=== PATIENT | male | born 1950 | race Caucasian/White ===

== ENCOUNTER 2019-05-29 12:41 | Emergency (ER) | payer MEDICARE, SELFPAY ==
[2019-05-29 12:44] VITALS: BP 135/78; PULSE 61; RESP 20; TEMP 35.7; O2SAT 100
--- NOTE | 2019-05-29 13:00 | ED.WEAKNESS ---
HPI - Weakness General Chief complaint: Weakness Stated complaint: DIZZY/WEAKNESS/NAUSEA Time Seen by Provider: 05/29/19 13:00 Source: patient Mode of arrival: ambulatory Limitations: no limitations History of Present Illness HPI Narrative: A 68 y/o male, who is a former smoker/nondrinker, presents to with c/o dizziness. Pt states he was watching a movie about 1 hour ago when he got up to use the bathroom. Pt began to feel dizzy while he was urinating and the room was spinning. Pt's was not home at the time so he called his son. Pt also c/o a CASTILLO for the past couple days which is not normal for him. Pt notes that he has been taking 2 ASA 325 mg for the past 3-4 days which he usually does not take. Pt reports generalized weakness which He reports nausea, dry heaving, an intermittent low grade fever, but denies vomiting, CP, ABD pain, and numbness. never had before pmhx sinus allergies gen weak days, works a lot will work until he falls over just got off abx sinus onf ampicilledda and sanjuanita, felt better after, finished friday congestion is better now sinus surgery x3 no earkness in arm or leg, no speech diff laid on floor after let son in feels better now no palp no recent injury btter laying down asthma med no hearing changes, no tinnitus worse blood test 6 months ago only takes brio and flanase carbon monoxide detector stopped working, has ventless fireplace recommnded blood test and CT scan no ct scan before left atrial enlargement Related Data Home Medications Medication Instructions Recorded Confirmed fluticasone furoate-vilanterol 1 inh INHALATION DAILY 05/29/19 05/29/19 [Breo Ellipta] fluticasone propionate [Flonase 1 spray INTRANASAL BID 05/29/19 05/29/19 Allergy Relief] Allergies Allergy/AdvReac Type Severity Reaction Status Date / Time No Known Allergies Allergy Verified 05/29/19 12:49 REPLACED BY [facility] Past Medical History Medical History (Updated 05/29/19 @ 13:20 by Lottie Cottrell) HLD (hyperlipidemia) Sinus problem Surgical History Surgical History (Updated 05/29/19 @ 13:19 by Lottie Cottrell) History of nasal surgery Social History Social History (Reviewed 05/29/19 @ 13:19 by Lottie Valdes Smoking status: Former smoker Second hand tobacco smoke exposure: No Alcohol intake: current Course Vital Signs Vital signs: Vital Signs Temperature 35.7 C L 05/29/19 12:44 Pulse Rate 61 05/29/19 12:44 Respiratory Rate 05/29/19 12:44 Blood Pressure 135/78 05/29/19 12:44 Pulse Oximetry 100 05/29/19 12:44 Temperature 35.7 C L 05/29/19 12:44 Pulse Rate 61 05/29/19 12:44 Respiratory Rate 05/29/19 12:44 Blood Pressure 135/78 05/29/19 12:44 Pulse Oximetry 100 05/29/19 12:44 Discharge Plan Discharge Prescriptions: No Action fluticasone propionate [Flonase Allergy Relief] 50 mcg/actuation [place],Suspension 1 spray INTRANASAL BID RF: 0 Breo Ellipta 100-25 mcg/dose Blister With Device 1 inh INHALATION DAILY RF: 0
--- NOTE | 2019-05-29 13:04 | ECG_ITS ---
Measurements Intervals [place] Rate: 55 P: 63 RI: 156 QRS: 27 QRSD: 101 T: 47 QT: 442 QTc: 425 Interpretive Statements SINUS BRADYCARDIA POSSIBLE LEFT ATRIAL ENLARGEMENT BORDERLINE ECG Electronically Signed On 05-29-2019 18:45:09 FIELD SALES REPRESENTATIVE by Juan Jose Dodson D.O.
--- NOTE | 2019-05-29 13:35 | ED.DIZZY ---
HPI - Dizziness General Chief Complaint: Weakness Stated Complaint: DIZZY/WEAKNESS/NAUSEA Time Seen by Provider: 05/29/19 13:00 Source: patient and family (son) Mode of arrival: wheelchair Limitations: no limitations History of Present Illness HPI Narrative: A 68 y/o male, who is a former smoker/nondrinker, presents to with c/o 'dizziness', true vertigo. Pt states he was watching a movie about 1 hour ago when he got up to use the bathroom. Pt began to feel dizzy while he was urinating and the room was spinning. Pt's was not home at the time so he called his son. When pt's son arrived, the pt was sitting in his chair but then proceeded to lay down on the floor. The dizziness is worse with movement and alleviated when sitting still. He reports nausea, dry heaving, an possible low fever, but denies vomiting, CP, ABD pain, numbness, palpitations, a recent injury, weakness in an arm or leg, speech difficulty, tinnitus nor hearing changes. Pt also c/o a CASTILLO for the past couple days which is like prior CASTILLO --yet not normally this persistant for him. Pt notes that he has been taking 2 ASA 325 mg for the past 3-4 days which he usually does not take. Pt reports generalized weakness stating that he has been more fatigued over the past few days. Pt has a PMHx of sinus problems but has not experienced dizziness like this before in the past. Pt just finished a course of Ampicillan AND a Z-pack on Friday for a sinus infection-with definite and strong improvement of congestion. Pt mentions that he has a ventless fireplace at home and his carbon monoxide detector is currently broken. His last blood test was done 6 months ago, it is recommended to the pt to present to the ED for a blood test and imaging. Onset (ago): hour(s) (1) Timing: sudden onset Description: room spinning Related Data Home Medications Medication Instructions Recorded Confirmed fluticasone furoate-vilanterol 1 inh INHALATION DAILY 05/29/19 05/29/19 [Breo Ellipta] fluticasone propionate [Flonase 1 spray INTRANASAL BID 05/29/19 05/29/19 Allergy Relief] Allergies Allergy/AdvReac Type Severity Reaction Status Date / Time No Known Allergies Allergy Verified 05/29/19 12:49 Review of Systems Review of Systems: Narrative: General/Constitutional: Reports: generalized weakness, fatigue, intermittent low grade fever; Denies: weight loss, a recent injury Eyes: Denies: Redness,discharge Ears/Nose/Throat: Denies: Epistaxis,ear discharge, hearing changes Respiratory: Denies: Hemoptysis Cardiovascular: Denies: CP, palpitations Gastrointestinal: Reports: nausea, dry heaving; Denies: Vomiting, Bleeding-rectal, ABD pain Skin: Denies: Lumps, eruption Neurologic: Reports: dizziness, CASTILLO; Denies: Focal Weakness,Sz, numbness, speech difficulty Hematologic: Denies: Petechiae/Purpura Psychiatric: Denies: Suicidal ideation All systems reviewed & are unremarkable except as noted in HPI and below PMFSH Past Medical History Medical History Arthritis Asthma Hemorrhoids Herniated disc HLD (hyperlipidemia) Renal disease Sinus problem Surgical History Surgical History H/O hernia repair History of nasal surgery Social History Social History Smoking status: Former smoker Second hand tobacco smoke exposure: No Alcohol intake: never Gender identity (if verbalized by the patient): Male Comments PCP: Dr. Galaviz At time of signature, agree with nursing past medical, surgical, social and family history. There is no relevant family history pertinent to the presenting complaint Exam Narrative: Exam Narrative: General Appearance: Well appearing, No distress EYE: PERRLA, Conjunctiva clear, EOMI, no nystagnus seen Neurological: A&O x3, CN II-X intact, normal [id number]-[id number] Ears: External ear normal, TM Nose:
[2019-05-29] MEDS: ONDANSETRON HCL ODT 4 MG TABLET PO (13:36)
--- NOTE | 2019-05-29 13:52 | PC.NURSE ---
Unable to give antivert to patient. None available in Bin.
== END 2019-05-29 13:55 | disposition short-term general hospital (02) ==
PROVIDERS: Emergency Provider Emergency Medicine; PCP Family Medicine
DX: R42 Dizziness and giddiness (principal); R11.2 Nausea with vomiting, unspecified; M19.90 Unspecified osteoarthritis, unspecified site; J45.909 Unspecified asthma, uncomplicated; E78.5 Hyperlipidemia, unspecified
CPT/HCPCS: 87804; 93005; 99213; A9270; G0463

== ENCOUNTER 2019-05-29 13:54 | Emergency (ER) | payer MEDICARE, SELFPAY ==
--- NOTE | ~2019-05-29 | CT_ITS ---
EXAMINATION: CTA brain carotid DATE: 05/29/2019 15:22 INDICATION: Dizziness TECHNIQUE: Computed tomographic angiography (CTA) of the head was performed without and with 100 mL O mnipaque-350 intravenous contrast. CTA of the neck was performed with intravenous contrast. The dose- length product was 1756.57 mGy-cm. Maximum intensity projection and volume rendered 3D-reconstruction s were created by the technologist on a separate workstation. Automated exposure control and iterativ e reconstruction technique were employed. COMPARISON: None. FINDINGS: HEAD CTA: There is no intracranial hemorrhage, acute infarction, or abnormal mass lesion. The ventri cles are normal. There is no abnormal mass effect or midline shift. The soto-white matter differentia tion is normal. The basal cisterns are patent. The orbits are normal. There is moderate opacification of the maxillary, sphenoid, and frontal sinuses as well as the ethmoidal air cells. There is no significant stenosis of the basilar artery or posterior cerebral arteries. The left verte bral artery is dominant. There is no significant stenosis of the intracranial internal carotid arteri es or the anterior or middle cerebral arteries. The anterior communicating artery and posterior commu nicating arteries are normal. There is no aneurysm. NECK CTA: There are no pathologically enlarged lymph nodes. There is severe mid cervical spondylosis. There is 0% stenosis of the proximal right internal carotid artery relative to normal distal artery l umen diameter (NASCET criteria). There is 0% stenosis of the proximal left internal carotid artery re lative to normal distal artery lumen diameter. IMPRESSION: 1. No acute intracranial process. Unremarkable head CTA. 2. 0% stenosis of the proximal right internal carotid artery relative to normal distal artery lumen d iameter (NASCET criteria). 3. 0% stenosis of the proximal left internal carotid artery relative to normal distal artery lumen di ameter. 4. Sinus disease. Reviewed, dictated and finalized at location A. ORICAL GUIDE IMPRESSION: 1. No acute intracranial process. Unremarkable head CTA. 2. 0% stenosis of the proximal right internal carotid artery relative to normal distal artery lumen diameter (NASCET criteria). 3. 0% stenosis of the proximal left internal carotid artery relative to normal distal artery lumen diameter. 4. Sinus disease.
[2019-05-29 13:58] VITALS: BP 146/78; PULSE 62; RESP 20; TEMP 36.4; O2SAT 100
[2019-05-29] MEDS: METOCLOPRAMIDE HCL INJ 10 MG/2 ML VIAL IV PUSH (14:40)
[2019-05-29] MEDS: LACTATED RINGERS 1,000 ML 999 ML IV CONT ×2 (14:40→15:22)
[2019-05-29 14:41] LABS: Basophils Absolute Auto 0.1 K/mm3 (0.0-0.1); Basophils Percent Auto 0.4 % (0.2-1.2); Eosinophils Absolute Auto 0.3 K/mm3 (0-0.3); Eosinophils Percent Auto 2.1 % (0-4.4); Hemoglobin 12.9 g/dL (14.0-18.0); Immature Granulocyte Absolute 0.06 K/mm3 (0.00-0.031); Immature Granulocyte Percent A 0.4 % (0-0.5); Lymphocytes Absolute Auto 0.92 K/mm3 (0.9-3.2); Lymphocytes Percent Auto 6.2 % (18.3-44.2); Mean Corpuscular HGB Conc 32.3 g/dl (32-36); Mean Corpuscular Hemoglobin 27.7 pg (26-34); Mean Platelet Volume 9.2 fl (7.4-10.4); Monocytes Percent Auto 6.5 % (2.6-8.5); Neutrophils Absolute Auto 12.5 K/mm3 (1.3-6.7); Neutrophils Percent Auto 84.4 % (45.5-73.1); Platelet Count Result 403 k/mm3 (150-375); Red Blood Count 4.65 M/mm3 (4.6-6.20); Red Cell Distribution Width 14.2 % (11.5-14.5); White Blood Count 14.8 K/mm3 (4.5-10.0)
[2019-05-29] MEDS: MECLIZINE HCL 25 MG TABLET PO (14:41)
--- NOTE | 2019-05-29 14:45 | ED.DIZZY ---
HPI - Dizziness General Chief Complaint: Dizziness <OSMANY Kelsey Last Filed: 05/29/19 16:57> Stated Complaint: dizziness/sent from urgent care <OSMANY Kelsey Last Filed: 05/29/19 16:57> Time Seen by Provider: 05/29/19 14:05 <OSMANY Kelsey Last Filed: 05/29/19 16:57> Source: patient and family <OSMANY Kelsey Last Filed: 05/29/19 16:57> Mode of arrival: ambulatory <OSMANY Kelsey Last Filed: 05/29/19 16:57> Limitations: no limitations <OSMANY Kelsey Last Filed: 05/29/19 16:57> History of Present Illness HPI Narrative: Patient is a 68-year-old male who presents to emergency department for evaluation of dizziness that began today patient notes that during the day he developed a sensation of the room spinning about him with position change with associated nausea and weakness. Patient denies similar occurrence in the past notes that he has had right temporal headache for the last 3 days that he has been taking aspirin for with improvement patient denies any fever chills vomiting diarrhea paresthesias or any other complaints and presents from urgent care in no distress denies injury or trauma notes that he did have a recent sinus infection that he is getting over. <OSMANY Kelsey Last Filed: 05/29/19 16:57> Related Data Home Medications: Home Medications Medication Instructions Recorded Confirmed fluticasone furoate-vilanterol 1 inh INHALATION DAILY 05/29/19 05/29/19 [Breo Ellipta] fluticasone propionate [Flonase 1 spray INTRANASAL BID 05/29/19 05/29/19 Allergy Relief] <OSMANY Kelsey Last Filed: 05/29/19 16:57> Allergies/Adverse Reactions: Allergies Allergy/AdvReac Type Severity Reaction Status Date / Time No Known Allergies Allergy Verified 05/29/19 12:49 <OSMANY Kelsey Last Filed: 05/29/19 16:57> Review of Systems Review of Systems: All systems reviewed & are unremarkable except as noted in HPI and below <OSMANY Kelsey Last Filed: 05/29/19 16:57> [facility] Past Medical History Medical History: Medical History Arthritis Asthma Hemorrhoids Herniated disc HLD (hyperlipidemia) Renal disease Sinus problem <Omar Sprague PA-C - Last Filed: 05/29/19 16:57> Surgical History Surgical History: Surgical History H/O hernia repair History of nasal surgery <Omar Sprague PA-C - Last Filed: 05/29/19 16:57> Social History Social History: Social History Smoking status: Former smoker Second hand tobacco smoke exposure: No Alcohol intake: never Gender identity (if verbalized by the patient): Male <Omar Sprague PA-C - Last Filed: 05/29/19 16:57> Exam Narrative: Exam Narrative: GENERAL: Well-appearing, well-nourished, and in no acute distress. HEAD: Normocephalic, atraumatic. EYES: PERRLA and EOMI. ENT: Nares clear, no rhinorrhea or epistaxis. Mucous membranes moist. Oropharynx without tonsillar hypertrophy exudate or other lesions. Bilateral TMs pearly soto nonbulging NECK: Supple. No adenopathy or masses. CHEST: Clear to auscultation. No respiratory distress. No wheezes rales or rhonchi HEART: Regular rate and rhythm. No murmur heard. EXTREMITIES: Normal range of motion. No edema. SKIN: Warm, dry, no rash. NEURO: No focal deficits. Alert and oriented x3. Cranial nerves II through XII grossly intact. Normal speech. Cerebellar intact. No pronator drift. Normal cqxori-uq-necx and gevb-is-nlhv PSYCH: Normal mood and affect. <Omar Sprague PA-C - Last Filed: 05/29/19 16:57> Course Course Emergency Course: Patient in the room in no distress noting resolution of symptoms with medications aware of case findings treatment plan and [place]
[2019-05-29 14:54] LABS: Alanine Aminotransferase 34 U/L (4-50); Albumin Level 4.1 g/dL (3.5-5.1); Alkaline Phosphatase 59 U/L (38-126); Aspartate Amino Transferase 38 U/L (17-59); Bilirubin,Total 0.5 mg/dL (0.2-1.3); Blood Urea Nitrogen 28 mg/dL (9-20); Calcium 9.5 mg/dL (8.4-10.2); Carbon Dioxide 25 mmol/L (22-30); Chloride 101 mmol/L (98-107); Estimated CRCL calculation 78 ml/min; Estimated Glomerular Filt Rate > 60; Glucose 98 mg/dL (75-110); Potassium 3.9 mmol/L (3.4-5.0); Sodium 135 mmol/L (137-145)
[2019-05-29 15:00] LABS: Blood Urea Nitrogen 31 mg/dL (8-26); Estimated CRCL calculation 78 ml/min; Estimated Glomerular Filt Rate > 60
[2019-05-29 15:03] LABS: Troponin I < 0.012 ng/mL (0.000-0.034)
[2019-05-29 15:23] VITALS: BP 135/73; PULSE 67; RESP 17; O2SAT 97
[2019-05-29 16:30] VITALS: BP 132/78; PULSE 76; RESP 17; O2SAT 98
--- NOTE | 2019-05-29 17:22 | ECG_ITS ---
Measurements Intervals [place] Rate: 52 P: 65 [place]: 156 QRS: 43 QRSD: 94 T: 55 QT: 442 QTc: 412 Interpretive Statements SINUS BRADYCARDIA POSSIBLE LEFT ATRIAL ENLARGEMENT BORDERLINE ECG Electronically Signed On 05-30-2019 7:28:39 DIRECTOR OF FINANCE by Juan Jose Dodson D.O.
[2019-05-29 17:27] VITALS: BP 127/59; PULSE 55; RESP 18; O2SAT 98
== END 2019-05-29 17:28 | disposition home or self-care (01) ==
PROVIDERS: Emergency Medicine Emergency Medical Services; Emergency Provider General Practice; PCP Family Medicine
DX: R42 Dizziness and giddiness (principal); R00.1 Bradycardia, unspecified; R94.31 Abnormal electrocardiogram [ECG] [EKG]; J32.9 Chronic sinusitis, unspecified; J45.909 Unspecified asthma, uncomplicated; E78.5 Hyperlipidemia, unspecified; N28.9 Disorder of kidney and ureter, unspecified; Z87.891 Personal history of nicotine dependence
CPT/HCPCS: 36415; 70496; 70498; 80053; 84484; 85025; 87804; 93005; 96361; 96374; 96375; 99284; A9270; J1200; J2765; J3360; J7120; Q9967

== ENCOUNTER 2019-06-08 07:14 | Outpatient (CLI) | payer MEDICARE, SELFPAY ==
--- NOTE | ~2019-06-08 | US_ITS ---
EXAMINATION: US aorta [facility] DATE: 06/08/2019 07:56 INDICATION: Abdominal aortic aneurysm screening. TECHNIQUE: Grayscale, color Doppler, and pulsed Doppler images of the aorta and common iliac arteries were obtained. COMPARISON: None. FINDINGS: The aorta is normal in caliber. The right common iliac artery is normal in caliber. The left common i liac artery is normal in caliber. IMPRESSION: 1. No abdominal aortic aneurysm. Reviewed, dictated and finalized at location A. TENDER
== END 2019-06-08 07:15 | disposition home or self-care (01) ==
LOC: ANHIMG 07:17
PROVIDERS: PCP Family Medicine; Visit Provider Physician Assistant Medical
DX: Z13.6 Encounter for screening for cardiovascular disorders (principal); Z87.891 Personal history of nicotine dependence
CPT/HCPCS: 76706

== ENCOUNTER 2020-08-09 14:21 | Emergency (ER) | payer MEDICARE, SELFPAY ==
--- NOTE | ~2020-08-09 | XR_ITS ---
XR shoulder RT min 2V 08/09/2020 14:36 Indication: Right shoulder pain after fall Procedure: 4 views right shoulder Comparison: No prior studies for comparison. Findings: No fracture, subluxation or dislocation. There is anatomic alignment. No significant soft t issue abnormality. Visualized lung parenchyma is unremarkable. Normal mineralization. Impression: 1: No significant bone or joint abnormality. Reviewed, dictated and finalized at location B. Impression: 1: No significant bone or joint abnormality.
[2020-08-09 14:36] VITALS: BP 158/89; PULSE 68; RESP 12; TEMP 36.5; O2SAT 99
--- NOTE | 2020-08-09 14:49 | ED.UPPEXIN ---
HPI - Extremity Injury (Upper) General Chief Complaint: Extremity Injury, Upper Stated Complaint: R SHOULDER INJURY Source: patient and RN notes reviewed Limitations: no limitations History of Present Illness HPI narrative: The patient, who is a right-handed and still working, presents with right shoulder pain. Patient states he has a prior history of right shoulder arthropathy and left arthritis. He slipped and fell today striking his right shoulder; he complains of mild to moderate pain and disuse. No bleeding, deformity, other injury; symptoms are worse with attempted activity, such that he cannot raise his affected arm much. Related Data Home Medications Medication Instructions Recorded Confirmed cholecalciferol (vitamin D3) 25 25 mcg PO DAILY 02/24/20 07/03/20 mcg (1,000 unit) capsule krill 1 cap PO DAILY 02/24/20 07/03/20 kxb-sa-4-zxi-dxv-pwraoyspagpcm 300 mg-90 mg-24 mg-50 mg capsule xxdnzkzr-cyp-krzqy acid 300 1 tablet PO DAILY 02/24/20 07/03/20 mcg-lycopene 600 mcg-lutein 300 mcg tablet Allergies Allergy/AdvReac Type Severity Reaction Status Date / Time No Known Allergies Allergy Verified 07/03/20 11:39 Review of Systems Review of Systems: Narrative: The patient has been informed that they may have pre-hypertension or Hypertension based on a BP reading in the department. I recommend that the patient call the primary care provider listed on their discharge instructions or a physician of their choice this week to arrange follow up for further evaluation of possible pre-hypertension or Hypertension General/Constitutional: No weight loss,fever Eyes: N0: Redness,discharge Ears/Nose/Throat: No: Epistaxis,ear discharge Respiratory: Denies: Hemoptysis Gastrointestinal: No Vomiting, Bleeding-rectal Skin: No Lumps, eruption Neurologic: No Focal Weakness,Sz Hematologic: Denies: Petechiae/Purpura Psychiatric: No: Suicida ideationl All Other Systems: Reviewed and Negative [facility] Past Medical History Medical History Arthritis Arthritis of finger of both hands Asthma Hemorrhoids Herniated disc HLD (hyperlipidemia) Renal disease Sinus problem Surgical History Surgical History H/O hernia repair History of nasal surgery Social History Social History Second hand tobacco smoke exposure: No Smoking end date: 02/11/85 Alcohol intake: never Substance use: never Gender identity (if verbalized by the patient): Male Comments At time of signature, agree with nursing past medical, surgical, social and family history. There is no relevant family history pertinent to the presenting complaint Exam Narrative: Exam Narrative: General Appearance: Well appearing, Well nourished, No distress EYE: PERRLA, EOMI, Conjunctiva clear Nose: Normal nose, Nares clear Mouth/Throat: Normal appearing, Normal lips, Supple Respiratory: Airway patent, No respiratory distress MS -shoulder: Normal strength (mostly intact, very limited flexion/extension, IR/ER by pain), Tenderness (deltoid laterally, with mod decreased ROM),no swelling , Other positive drop arm, unable to do other provocative tests Skin: Warm, Dry, Normal color Neurological: A&O x3, Speech clear, CN II-XII intact Psychiatric: Normal mood, Normal affect Course Course Emergency Course: Films visualized, interpreted by radiologist, agree, normal see report Vital Signs Vital signs: Vital Signs Temperature 97.7 F 08/09/20 14:36 Pulse Rate 68 08/09/20 14:36 Respiratory Rate 12 08/09/20 14:36 Blood Pressure 158/89 H 08/09/20 14:36 Pulse Oximetry 99 08/09/20 14:36 Temperature 97.7 F 08/09/20 14:36 Pulse Rate 68 08/09/20 14:36 Respiratory Rate 12 08/09/20 14:36 Blood Pressure 158/89 H 08/09/20 14:36 Pulse Oximetry 99 08/09/20 14:36
== END 2020-08-09 15:00 | disposition home or self-care (01) ==
PROVIDERS: Emergency Provider Emergency Medicine; PCP Family Medicine
DX: S46.001A Unspecified injury of muscle(s) and tendon(s) of the rotator cuff of right shoulder, initial encounter (principal); W19.XXXA Unspecified fall, initial encounter; M19.91 Primary osteoarthritis, unspecified site; M19.042 Primary osteoarthritis, left hand; M19.041 Primary osteoarthritis, right hand; J45.909 Unspecified asthma, uncomplicated; E78.5 Hyperlipidemia, unspecified
CPT/HCPCS: 73030; 99213; G0463

== ENCOUNTER 2020-12-11 12:37 | Outpatient (CLI) | payer MEDICARE, SELFPAY | END 2020-12-11 12:38 | disposition home or self-care (01) | LOC: ANHAUDASC 12:39 | PROVIDERS: PCP Family Medicine; Visit Provider Otolaryngology | DX: H90.3 Sensorineural hearing loss, bilateral (principal) | CPT/HCPCS: 92557; 92567 ==

== ENCOUNTER 2021-08-23 00:34 | Day surgery (SDC) | payer MEDICARE, SELFPAY ==
[2021-07-13 12:53] VITALS: BMI 20.8
--- NOTE | 2021-08-06 12:34 | PC.NURSE ---
Reviewed preop history, patient denies any changes to medical history or medications. Reviewed pre op teaching with patient. Patient verbalized understanding.
[2021-08-23 06:57] VITALS: BP 133/78; PULSE 67; RESP 20; TEMP 36.5; O2SAT 100; BMI 19.3
[2021-08-23] MEDS: LACTATED RINGERS 1,000 ML 150 ML IV CONT (07:08)
--- NOTE | 2021-08-23 07:37 | WPDANESEPPF ---
Anes - Initial Pre Proc Eval Procedure: Operation Date: 08/23/21 08:00 Proposed Procedures p Screening Colonoscopy - Alexy Garcia MD Date/Time: 08/23/21 07:37 Surgeon: Alexy Garcai MD Pre Op Diagnosis: neoplasm screening Patient Data Age: 70 Gender: M Height: 1.78 m Weight: 61.3 kg Last Vital Signs Temp 97.7 F 08/23/21 06:57 Pulse 67 08/23/21 06:57 Resp 20 08/23/21 06:57 BP 133/78 08/23/21 06:57 Pulse Ox 100 08/23/21 06:57 Allergies Allergy/AdvReac Type Severity Reaction Status Date / Time No Known Allergies Allergy Verified 08/23/21 06:55 Home Medications Medication Instructions Recorded Confirmed Type cholecalciferol (vitamin D3) 25 25 mcg PO DAILY 02/24/20 07/13/21 History mcg (1,000 unit) capsule krill 1 cap PO DAILY 02/24/20 07/13/21 History sgw-vk-8-gom-rpm-wodkkpkqaudia 300 mg-90 mg-24 mg-50 mg capsule mjlzrjzz-fnw-hfjed acid 300 1 tablet PO DAILY 02/24/20 07/13/21 History mcg-lycopene 600 mcg-lutein 300 mcg tablet fluticasone propionate 50 1 spray INTRANASAL DAILY 08/16/20 07/13/21 History mcg/actuation nasal spray,suspension fluticasone furoate 100 See Rx Instructions .ROUTE 07/09/21 07/13/21 Rx mcg-vilanterol 25 mcg/dose .COMPLEX #180 disk inhalation powder amoxicillin 875 mg-potassium 1 tablet PO Q12H #14 tablet 08/01/21 08/06/21 Rx clavulanate 125 mg tablet prednisone 10 mg tablet See Rx Instructions PO DAILY #42 08/01/21 08/06/21 Rx tablet tamsulosin 0.4 mg capsule See Rx Instructions .ROUTE 08/17/21 Rx .COMPLEX #90 cap Patient hx anesthesia problems: none Family hx anesthesia problems: none Results Review: All pre-operative results and documents have been reviewed as part of the pre-operative evaluation. [facility] Past Medical History Medical History (Reviewed 08/01/21 @ 15:04 by Sera Robles [facility]) Arthritis Arthritis of finger of both hands Asthma Hemorrhoids Herniated disc HLD (hyperlipidemia) Prediabetes Renal disease Rotator cuff disorder Sinus problem Tendinitis of right rotator cuff Urinary hesitancy Wears glasses Surgical History Surgical History H/O hernia repair History of nasal surgery Family History Family History Other Diabetes mellitus Social History Social History Smoking packs per day: 1 Smoking cigarettes per day: 20.0 Years smoked: 13 Smoking pack-years: 13.00 Tobacco type: cigarettes Second hand tobacco smoke exposure: No Smoking end date: 02/11/85 Alcohol intake: never Substance use: never Living arrangements: with family Gender identity (if verbalized by the patient): Male Spiritual care concerns: No Anes - Eval Final PreProcedure Day of Procedure 08/23/21 07:37 Patient weight: normal Heart: regular rate and rhythm Lungs: clear to auscultation Airway: Mallampati scale class II Neurological: alert and oriented Last oral intake: >/= 8 hours ASA classification: II Emergent: no Anesthetic plan: proceed Anesthesia type and monitoring: general GIVS and standard monitoring Results Review: All pre-operative results and documents have been reviewed as part of the pre-operative evaluation. Informed Consent: The patient's anesthetic plan and its attendant risks and benefits were discussed with the patient/family/POA. Questions were solicited and answers provided to the satisfaction of the patient/family/POA.
--- NOTE | 2021-08-23 08:00 | WPDGICN ---
Assessment and Plan Assessment and plan (1) Encounter for screening colonoscopy: Code(s): Z12.11 - Encounter for screening for malignant neoplasm of colon Status: Acute Assessment and Plan: Patient presents for screening colonoscopy. He appears to be at average risk for colon polyps. Further recommendations will be given after endoscopy. GI Consult Note Consult date/time: 08/23/21 08:00 HPI: Minh Major is a 70 year old male Presents for screening colonoscopy. Patient's current weight appetite and bowel movements are normal. Patient denies abdominal pain. He has had no bleeding. Family history is noncontributory. Patient reports prior colonoscopy 10 years ago. He presents today for neoplasia screening. Review of Systems Review of Systems: All systems reviewed & are unremarkable except as noted in HPI and below PMFSH Past Medical History Medical History Arthritis Arthritis of finger of both hands Asthma Hemorrhoids Herniated disc HLD (hyperlipidemia) Prediabetes Renal disease Rotator cuff disorder Sinus problem Tendinitis of right rotator cuff Urinary hesitancy Wears glasses Surgical History Surgical History H/O hernia repair History of nasal surgery Family History Family History Other Diabetes mellitus Social History Social History Smoking packs per day: 1 Smoking cigarettes per day: 20.0 Years smoked: 13 Smoking pack-years: 13.00 Tobacco type: cigarettes Second hand tobacco smoke exposure: No Smoking end date: 02/11/85 Alcohol intake: never Substance use: never Living arrangements: with family Gender identity (if verbalized by the patient): Male Spiritual care concerns: No Meds Home Medications and Allergies Home Medications Medication Instructions Recorded Confirmed Type cholecalciferol (vitamin D3) 25 25 mcg PO DAILY 02/24/20 07/13/21 History mcg (1,000 unit) capsule krill 1 cap PO DAILY 02/24/20 07/13/21 History ozz-yd-6-rke-xsz-ttvptakdhywce 300 mg-90 mg-24 mg-50 mg capsule gmxgmmjs-wwr-carto acid 300 1 tablet PO DAILY 02/24/20 07/13/21 History mcg-lycopene 600 mcg-lutein 300 mcg tablet fluticasone propionate 50 1 spray INTRANASAL DAILY 08/16/20 07/13/21 History mcg/actuation nasal spray,suspension fluticasone furoate 100 See Rx Instructions .ROUTE 07/09/21 07/13/21 Rx mcg-vilanterol 25 mcg/dose .COMPLEX #180 disk inhalation powder amoxicillin 875 mg-potassium 1 tablet PO Q12H #14 tablet 08/01/21 08/06/21 Rx clavulanate 125 mg tablet prednisone 10 mg tablet See Rx Instructions PO DAILY #42 08/01/21 08/06/21 Rx tablet tamsulosin 0.4 mg capsule See Rx Instructions .ROUTE 08/17/21 Rx .COMPLEX #90 cap Allergies Allergy/AdvReac Type Severity Reaction Status Date / Time No Known Allergies Allergy Verified 08/23/21 06:55 Vital Signs Vital Signs - 24 hr 08/23/21 06:57 Temperature 97.7 F Pulse Rate 67 Respiratory Rate 20 Blood Pressure 133/78 Pulse Oximetry 100 Exam Narrative: Physical exam reveals patient to be alert. Vital signs stable. HEENT exam is unremarkable. Patient is anicteric. Lungs are clear to auscultation and percussion. Heart is without murmur or extra sounds. Abdominal exam bowel sounds are present soft nontender with no organomegaly. Digital external rectal exam is normal.
[2021-08-23 08:33] VITALS: BP 125/82; PULSE 82; RESP 19; O2SAT 100
[2021-08-23 08:43] VITALS: BP 115/79; PULSE 73; RESP 18; O2SAT 100
[2021-08-23 08:53] VITALS: BP 141/84; PULSE 67; RESP 19; O2SAT 99
== END 2021-08-23 08:56 | disposition home or self-care (01) ==
PROVIDERS: PCP Family Medicine; Visit Provider Internal Medicine Gastroenterology
PROC: 0DJD8ZZ Inspection of Lower Intestinal Tract, Via Natural or Artificial Opening Endoscopic (ICD-10-PCS; CPT 45378; principal; 2021-08-23 08:00)
DX: Z12.11 Encounter for screening for malignant neoplasm of colon (principal); D12.2 Benign neoplasm of ascending colon; D12.5 Benign neoplasm of sigmoid colon; K57.30 Diverticulosis of large intestine without perforation or abscess without bleeding; E78.5 Hyperlipidemia, unspecified; R39.11 Hesitancy of micturition; J45.909 Unspecified asthma, uncomplicated; Z87.891 Personal history of nicotine dependence
CPT/HCPCS: 45385; 88305; J2001; J2704; J7120

== ENCOUNTER 2021-10-19 08:26 | Emergency (ER) | payer MEDICARE, SELFPAY ==
--- NOTE | 2021-10-19 08:32 | ED.WOUNDLAC ---
HPI - Wound/Laceration General Chief Complaint: Wound/Laceration Stated Complaint: R 5TH FINGER LAC Time Seen by Provider: 10/19/21 08:45 Source: patient, RN notes reviewed and old records reviewed Mode of arrival: ambulatory Limitations: no limitations History of Present Illness HPI narrative: 70-year-old male presents to the [facility] with complaints of dorsal aspect right fifth finger laceration. Bleeding is controlled. Last Tdap was 26 October 2020 Per medical record. Patient states that he was washing dishes when the laceration occurred. States that a dish broke. Happened just prior to arrival approximately 45 minutes. Has full range of motion of the finger. Capillary refill and sensation intact distal to injury Onset (ago): minute(s) (45) Patient tetanus UTD: Yes Treatments prior to arrival: bandage Related Data Home Medications Medication Instructions Recorded Confirmed fluticasone propionate 50 1 spray intranasal DAILY 08/16/20 10/19/21 mcg/actuation nasal spray,suspension (Flonase Allergy Relief) fluticasone furoate 100 1 inh inhalation DAILY 10/19/21 10/19/21 mcg-vilanterol 25 mcg/dose inhalation powder (Breo Ellipta) Allergies Allergy/AdvReac Type Severity Reaction Status Date / Time No Known Allergies Allergy Verified 10/19/21 09:07 Review of Systems Review of Systems: All systems reviewed & are unremarkable except as noted in HPI and below Constitutional: Constitutional: Reports no additional constitutional complaints, Denies chills and Denies fever(s) Eyes: Eyes: Reports no additional eye complaints ENT: Reports system reviewed and no additional complaints, except as documented Cardiovascular: Cardiovascular: Reports no additional cardiovascular complaints Respiratory: Respiratory: Reports no additional respiratory complaints Gastrointestinal: Gastrointestinal: Reports no additional gastrointestinal complaints Musculoskeletal: Musculoskeletal: Reports no additional musculoskeletal complaints Integumentary/Breasts: Skin/Breast: Reports as per HPI (Finger laceration) Comments: 1.5 semicircular flap laceration dorsal PIP right 5th finger. Neurologic: Reports system reviewed and no additional complaints, except as documented Psychiatric: Psychiatric: Reports no additional psychiatric complaints Allergic/Immunologic: Allergic/Immunologic: Reports no additional allergic/immunologic complaints PMFSH Past Medical History Medical History Arthritis Arthritis of finger of both hands Asthma Colon polyp Hemorrhoids Herniated disc HLD (hyperlipidemia) Prediabetes Renal disease Rotator cuff disorder Sinus problem Tendinitis of right rotator cuff Urinary hesitancy Wears glasses Surgical History Surgical History H/O hernia repair History of nasal surgery Family History Family History Other Diabetes mellitus Social History Social History Smoking packs per day: 1 Smoking cigarettes per day: 20.0 Years smoked: 13 Smoking pack-years: 13.00 Tobacco type: cigarettes Second hand tobacco smoke exposure: No Smoking end date: 02/11/85 Alcohol intake: never Substance use: never Gender identity (if verbalized by the patient): Male Spiritual care concerns: No Comments At the time of my signature, I reviewed and agree with the nursing past medical, surgical, social, and family history. There is no relevant family history pertinent to the patient complaint. Exam Const: General: healthy appearing, no acute distress and alert Nutritional Appearance: well nourished Orientation/consciousness: patient oriented x3 Limitations: no limitations HENMT: Head: normal to inspection Ears: external ears normal Eyes: General: appearance normal
[2021-10-19 08:42] VITALS: BP 132/95; PULSE 69; RESP 18; TEMP 36.1; O2SAT 97
[2021-10-19] MEDS: LIDOCAINE HCL 1% LOCAL INJ 20 ML VIAL 5 ML INFILTRATE (15:20)
== END 2021-10-19 09:34 | disposition home or self-care (01) ==
PROVIDERS: Emergency Provider Nurse Practitioner; PCP Family Medicine
DX: S61.216A Laceration without foreign body of right little finger without damage to nail, initial encounter (principal); W45.8XXA Other foreign body or object entering through skin, initial encounter; Y93.G1 Activity, food preparation and clean up; Z87.891 Personal history of nicotine dependence; M19.90 Unspecified osteoarthritis, unspecified site; J45.909 Unspecified asthma, uncomplicated; E78.5 Hyperlipidemia, unspecified; R73.03 Prediabetes
CPT/HCPCS: 12001; 99212; G0463

== ENCOUNTER → 2021-10-23 14:57 | Outpatient (CLI) | payer MEDICARE, SELFPAY ==
--- NOTE | ~2021-10-23 | XR_ITS ---
XR lumbar spine 2-3V 10/23/2021 15:34 Indication: Low back pain Procedure: 3 views lumbar spine Comparison: No prior studies for comparison. Findings: There is dextroscoliosis. There is disc narrowing and endplate hypertrophy at L1-2-L5-S1. P edicles are intact. There are prominent marginal osteophytes. Bowel gas pattern nonobstructive. Impression: 1: Severe lumbar spondylosis with dextroscoliosis. Reviewed, dictated and finalized at location A. Impression: 1: Severe lumbar spondylosis with dextroscoliosis.
== END ==
PROVIDERS: PCP Family Medicine; Visit Provider Physician Assistant
DX: M47.896 Other spondylosis, lumbar region (principal)
CPT/HCPCS: 72100

== ENCOUNTER → 2022-01-01 08:46 | Outpatient (CLI) | payer MEDICARE, SELFPAY ==
--- NOTE | ~2022-01-01 | MR_ITS ---
EXAMINATION: MR lumbar spine wo con DATE: 01/01/2022 09:33 INDICATION: Low back pain. TECHNIQUE: Magnetic resonance imaging (MRI) of the lumbar spine was performed without intravenous con trast. Sequences included sagittal T2-weighted FSE, sagittal T2-weighted FS FSE, sagittal T1-weighted FSE, and axial T2-weighted FSE. COMPARISON: Lumbar spine radiographs 10/23/2021 FINDINGS: There is 22 degrees dextroscoliosis of lumbar spine. There is 5 mm anterolisthesis of L3 on L4. There is mild chronic anterior wedging of T12 and L1 vertebral bodies. There is severely decreas ed disc height from L1-L2 through L5-S1 with endplate remodeling. The distal spinal cord signal inten sity is normal. The conus medullaris is at L1-L2. The following disc levels are specifically discusse d: L1-L2: The disc is bulging and has an annular fissure. There is mild bilateral facet joint osteoarthr itis. There is moderate right and mild left neural foraminal stenosis. There is mild central canal st enosis. L2-L3: The disc is bulging and has an annular fissure. There is mild right and moderate left facet ira int osteoarthritis. There is mild right and moderate left neural foraminal stenosis. There is mild ce ntral canal stenosis. L3-L4: The disc is bulging and has an annular fissure. There is severe bilateral facet joint osteoart hritis. There is moderate bilateral neural foraminal stenosis. There is severe central canal stenosis . L4-L5: The disc is bulging and has an annular fissure. There is severe right and moderate left facet joint osteoarthritis. There is moderate right and mild left neural foraminal stenosis. There is mild central canal stenosis. L5-S1: The disc is bulging and has an annular fissure. There is severe bilateral facet joint osteoart hritis. There is moderate right and mild left neural foraminal stenosis. There is mild central canal stenosis. IMPRESSION: 1. Severe lumbar spondylosis. 2. Lumbar dextroscoliosis. Reviewed, dictated and finalized at location A.
== END ==
PROVIDERS: PCP Family Medicine; Visit Provider Physical Medicine & Rehabilitation
DX: M47.26 Other spondylosis with radiculopathy, lumbar region (principal)
CPT/HCPCS: 72148

== ENCOUNTER 2022-09-16 08:07 | Emergency (ER) | payer MEDICARE, SELFPAY ==
--- NOTE | ~2022-09-16 | XR_ITS ---
AP and oblique views of the left ribs, and PA and lateral chest radiographs Clinical History: Pain Findings: No rib fracture is seen. Osseous alignment is anatomic. Lungs are clear, without focal cons olidation or pleural effusion. Cardiomediastinal contour is within normal limits. Soft tissues are un remarkable. Impression: No rib fracture is seen. Clear lungs. Reviewed, dictated and finalized at location . Impression: No rib fracture is seen. Clear lungs.
[2022-09-16 08:16] VITALS: BP 125/94; PULSE 98; RESP 16; TEMP 36.8; O2SAT 98
--- NOTE | 2022-09-16 08:17 | ED.FALL ---
HPI - Fall General Chief Complaint: Fall Stated Complaint: chest pain, rib injury Time Seen by Provider: 09/16/22 08:17 Source: patient, RN notes reviewed and old records reviewed Mode of arrival: ambulatory Limitations: no limitations History of Present Illness HPI Narrative: 71 [facility] old male [facility] complaints of left anterior lower rib pain after dropping his drill and hitting his left anterior rib area on fence post yesterday around 0800. Patient reports pain along left anterior rib region with increased pain with deep breathing denies any acute shortness of breath does have history of asthma. Patient denies hitting his head when he fell or any LOC, denies feelings of dizziness prior to fall. Patient reports that he has been taking Advil for his discomfort. MD complaint: fall Onset (ago): day(s) (yesterday) Fall from: other (fell into fence post) Place fall occurred: home Loss of consciousness: none Symptoms prior to fall: none Location of injury: chest (left lower anterior rib area) Severity scale (1-10): 6 Related Data Home Medications Medication Instructions Recorded Confirmed fluticasone propionate 50 1 spray intranasal DAILY 08/16/20 09/16/22 mcg/actuation nasal spray,suspension (Flonase Allergy Relief) ferrous sulfate 325 mg (65 mg 325 mg PO BID 12/13/21 09/16/22 iron) tablet pseudoephedrine HCl 30 mg tablet 30 mg PO BID 09/16/22 09/16/22 (Sudafed) Allergies Allergy/AdvReac Type Severity Reaction Status Date / Time No Known Allergies Allergy Verified 09/16/22 08:19 Review of Systems Review of Systems: CONSTITUTIONAL: Denies fever, chills, or sweats. EYES: Denies visual changes, redness, or discharge. ENT: Denies rhinorrhea, congestion, sore throat, or otalgia. CARDIOVASCULAR: Denies chest pain,Reports left anterior lower rib pain from fall into fence post,no palpitations, or edema. RESPIRATORY: Denies acute cough or dyspnea. GASTROINTESTINAL: Denies abdominal pain, nausea, vomiting, or diarrhea. GENITOURINARY: Denies dysuria or hematuria. SKIN: Denies rash or itching. MUSCULOSKELETAL: Denies back pain, joint pain, or myalgia. NEUROLOGIC: Denies headache, numbness, or weakness. PSYCHIATRIC: Denies anxiety or depression. All systems reviewed & are unremarkable except as noted in HPI and below PMFSH Past Medical History Medical History Arthritis Arthritis of finger of both hands Asthma Colon polyp Hemorrhoids Herniated disc HLD (hyperlipidemia) Prediabetes Renal disease Rotator cuff disorder Sinus problem Tendinitis of right rotator cuff Urinary hesitancy Wears glasses Surgical History Surgical History H/O hernia repair History of nasal surgery Family History Family History Other Diabetes mellitus Social History Social History Smoking packs per day: 1 Smoking cigarettes per day: 20.0 Years smoked: 13 Smoking pack-years: 13.00 Smoking status: Former smoker Tobacco type: cigarettes Second hand tobacco smoke exposure: No Smoking end date: 02/11/85 Alcohol intake: never Substance use: never Lack of Transportation: No Lack of Food: Never True Current Housing: I Have Housing Concerned About Future Housing: No Difficulty Paying Gas/Electric Bills: No Difficulty Paying for Meds: No Currently Unemployed: No Education: Associate Degree Difficulty w/ Childcare or Family Care: No Living arrangements: with family Gender identity (if verbalized by the patient): Male Spiritual care concerns: No Comments At time of signature, agree with nursing past medical, surgical, social and family history. There is no relevant family history pertinent to the presenting complaint Exam Narrative: GE
[2022-09-16 08:19] VITALS: BP 125/94; PULSE 98; RESP 16; TEMP 36.8; O2SAT 98
== END 2022-09-16 08:53 | disposition home or self-care (01) ==
PROVIDERS: Emergency Provider Registered Nurse; PCP Family Medicine
DX: S20.212A Contusion of left front wall of thorax, initial encounter (principal); W22.8XXA Striking against or struck by other objects, initial encounter; J45.909 Unspecified asthma, uncomplicated; E78.5 Hyperlipidemia, unspecified; R73.03 Prediabetes; M19.042 Primary osteoarthritis, left hand; M19.041 Primary osteoarthritis, right hand
CPT/HCPCS: 71046; 71100; 99213; G0463

== ENCOUNTER 2022-12-03 10:19 | Emergency (ER) | payer MEDICARE, SELFPAY ==
--- NOTE | 2022-12-03 10:22 | ED.WOUNDLAC ---
HPI - Wound/Laceration General Chief Complaint: Wound/Laceration Stated Complaint: L LOWER LEG LACERATION Source: patient and RN notes reviewed Mode of arrival: ambulatory Limitations: no limitations History of Present Illness HPI narrative: Patient is a 71-year-old male who presents to [facility] with complaints of left lower leg laceration. Patient presents with a 6 cm v-shaped laceration to the left lateral lower leg; bleeding is controlled. Patient states that he was hauling debris and gouged himself with a nail. He is neurovascularly intact distal to the injury. Patient's last tetanus was in 2020. Related Data Home Medications Medication Instructions Recorded Confirmed fluticasone propionate 50 1 spray intranasal DAILY 08/16/20 09/19/22 mcg/actuation nasal spray,suspension (Flonase Allergy Relief) ferrous sulfate 325 mg (65 mg 325 mg PO BID 12/13/21 09/19/22 iron) tablet pseudoephedrine HCl 30 mg tablet 30 mg PO BID 09/16/22 09/19/22 (Sudafed) Allergies Allergy/AdvReac Type Severity Reaction Status Date / Time No Known Allergies Allergy Verified 10/21/22 14:28 Review of Systems Review of Systems: CONSTITUTIONAL: Denies fever, chills, or sweats. EYES: Denies visual changes, redness, or discharge. ENT: Denies otalgia and sore throat CARDIOVASCULAR: Denies chest pain, palpitations, or edema. RESPIRATORY: Denies cough or dyspnea. GASTROINTESTINAL: Denies abdominal pain, nausea, vomiting, or diarrhea. GENITOURINARY: Denies dysuria or hematuria. SKIN: Denies rash or itching. Laceration to the left lower leg. MUSCULOSKELETAL: Denies back pain, joint pain, or myalgia. NEUROLOGIC: Denies headache, numbness, or weakness. Pertinent positives per HPI. [facility] Past Medical History Medical History Arthritis Arthritis of finger of both hands Asthma Colon polyp Hemorrhoids Herniated disc HLD (hyperlipidemia) Prediabetes Renal disease Rotator cuff disorder Sinus problem Tendinitis of right rotator cuff Urinary hesitancy Wears glasses Surgical History Surgical History H/O hernia repair History of nasal surgery Family History Family History Other Diabetes mellitus Social History Social History Smoking packs per day: 1 Smoking cigarettes per day: 20.0 Years smoked: 13 Smoking pack-years: 13.00 Smoking status: Former smoker Tobacco type: cigarettes Second hand tobacco smoke exposure: No Smoking end date: 02/11/85 Alcohol intake: never Substance use: never Lack of Transportation: No Lack of Food: Never True Current Housing: I Have Housing Concerned About Future Housing: No Difficulty Paying Gas/Electric Bills: No Difficulty Paying for Meds: No Currently Unemployed: No Education: Associate Degree Difficulty w/ Childcare or Family Care: No Living arrangements: with family Gender identity (if verbalized by the patient): Male Spiritual care concerns: No Comments At the time of my signature, I reviewed and agree with the nursing past medical, surgical, social, and family history. There is no relevant family history pertinent to the patient complaint. Exam Narrative: GENERAL: This is a well-nourished, well-developed patient, in no apparent distress. HEAD: normocephalic, atraumatic. EYES: PERRL. Sclera clear/white. Vision is grossly intact. EARS: External ears normal, auditory canals clear and without drainage, TMs normal without perforation. Hearing grossly intact. NOSE: External nose normal with no obvious nasal discharge, nares without redness, no rhinorrhea. THROAT: Mucous membranes moist, posterior pharynx clear. NECK: Neck supple, non-tender without lymphadenopathy, masses or thyromegaly. CARDIOVASCULAR: R
[2022-12-03 10:36] VITALS: BP 114/86; PULSE 82; RESP 16; TEMP 36.8; O2SAT 100
== END 2022-12-03 11:02 | disposition home or self-care (01) ==
PROVIDERS: Emergency Provider Nurse Practitioner; PCP Family Medicine
DX: S81.812A Laceration without foreign body, left lower leg, initial encounter (principal); W45.0XXA Nail entering through skin, initial encounter; Z87.891 Personal history of nicotine dependence; M19.042 Primary osteoarthritis, left hand; M19.041 Primary osteoarthritis, right hand; J45.909 Unspecified asthma, uncomplicated; E78.5 Hyperlipidemia, unspecified; R73.03 Prediabetes
CPT/HCPCS: 99212; G0463

== ENCOUNTER 2023-06-16 13:57 | Outpatient (CLI) | payer MEDICARE, SELFPAY ==
--- NOTE | ~2023-06-16 | XR_ITS ---
EXAMINATION: XR chest 2V Exam Date/Time: 06/16/2023 14:00 INSURANCE CLAIMS ADJUSTER HISTORY: J45.30 - Mild persistent asthma, uncomplicated Comparison: None. RESULT: Lines, tubes, and devices: None. Lungs and pleura: Clear. Cardiomediastinal silhouette: Stable. Other: No acute osseous or upper abdominal finding. IMPRESSION: No acute cardiopulmonary process. Reviewed, dictated and finalized at location K. RANCE CLAIMS ADJUSTER
== END 2023-06-16 13:58 ==
PROVIDERS: PCP Family Medicine; Visit Provider Family Medicine
DX: J45.30 Mild persistent asthma, uncomplicated (principal)
CPT/HCPCS: 71046

== ENCOUNTER 2023-07-10 12:55 | Outpatient (CLI) | payer MEDICARE, SELFPAY | END 2023-07-10 12:56 | disposition home or self-care (01) | LOC: ANHAUDASC 12:57 | PROVIDERS: PCP Otolaryngology; Visit Provider Otolaryngology | DX: H66.90 Otitis media, unspecified, unspecified ear (principal); H90.6 Mixed conductive and sensorineural hearing loss, bilateral; H90.3 Sensorineural hearing loss, bilateral | CPT/HCPCS: 92557; 92567 ==

== ENCOUNTER 2023-12-30 15:24 | Emergency (ER) | payer MEDICARE, SELFPAY ==
[2023-12-30 15:44] VITALS: BP 104/68; PULSE 118; RESP 16; TEMP 36.8; O2SAT 98
--- NOTE | 2023-12-30 20:54 | ED.WOUNDLAC ---
HPI - Wound/Laceration General Chief Complaint: Wound/Laceration Stated Complaint: R LOWER LEG LACERATION Time Seen by Provider: 12/30/23 15:51 Source: patient, RN notes reviewed and old records reviewed Mode of arrival: ambulatory Limitations: no limitations History of Present Illness HPI narrative: 73-[facility] to [facility] for complaint of wound to right lower leg. Patent states injury occurred approximately 2 hours prior to arrival. Patient reports that a wooden Pallet fell onto his stevenson, causing injury. Bleeding controlled upon arrival. Patient uncertain of Tdap status. Patient denies Pain, numbness, tingling, weakness, allergies, pertinent medical history. Patient is sitting comfortably in exam room in no acute distress. Respirations even and nonlabored. Related Data Home Medications Medication Instructions Recorded Confirmed ferrous sulfate 325 mg (65 mg 325 mg PO BID 12/13/21 10/23/23 iron) tablet latanoprost 0.005 % eye drops drp EACH EYE 06/16/23 10/23/23 Allergies Allergy/AdvReac Type Severity Reaction Status Date / Time No Known Allergies Allergy Verified 12/30/23 15:50 Review of Systems Review of Systems: All systems reviewed & are unremarkable except as noted in HPI and below Constitutional: Constitutional: Reports no additional constitutional complaints Eyes: Eyes: Reports no additional eye complaints ENT: Reports system reviewed and no additional complaints, except as documented Cardiovascular: Cardiovascular: Reports no additional cardiovascular complaints, Denies chest pain and Denies dyspnea Respiratory: Respiratory: Reports no additional respiratory complaints, Denies cough and Denies dyspnea Musculoskeletal: Musculoskeletal: Reports no additional musculoskeletal complaints Integumentary/Breasts: Skin/Breast: Reports as per HPI and Reports wounds ( right lower leg) Neurologic: Reports system reviewed and no additional complaints, except as documented Psychiatric: Psychiatric: Reports no additional psychiatric complaints [facility] Past Medical History Medical History Arthritis Arthritis of finger of both hands Asthma Colon polyp Hemorrhoids Herniated disc HLD (hyperlipidemia) Prediabetes Renal disease Rotator cuff disorder Sinus problem Tendinitis of right rotator cuff Urinary hesitancy Wears glasses Surgical History Surgical History H/O hernia repair History of nasal surgery Family History Family History Other Diabetes mellitus Social History Social History Social History: Caffeine-coffee Smoking packs per day: 1 Smoking cigarettes per day: 20.0 Years smoked: 13 Smoking pack-years: 13.00 Smoking status: Former smoker Tobacco type: cigarettes Second hand tobacco smoke exposure: No Smoking end date: 02/11/85 Alcohol intake: never Substance use: never Substance use type: does not use Do You Feel Safe in your Home?: Yes Lack of Transportation: No Lack of Food: Never True Current Housing: I Have Housing Concerned About Future Housing: No Difficulty Paying Gas/Electric Bills: No Difficulty Paying for Meds: No Currently Unemployed: No Education: Associate Degree Difficulty w/ Childcare or Family Care: No Living arrangements: with family Gender identity (if verbalized by the patient): Male Spiritual care concerns: No Comments At the time of my signature, I reviewed and agree with the nursing past medical, surgical, social, and family history. There is no relevant family history pertinent to the patient complaint. Exam Const: General: cooperative, healthy appearing, comfortable, no acute distress, alert and well nourished Nutritional Appearance: well nourished Jeferson
== END 2023-12-30 16:03 | disposition home or self-care (01) ==
PROVIDERS: Emergency Provider Nurse Practitioner Family; PCP Family Medicine
DX: S81.811A Laceration without foreign body, right lower leg, initial encounter (principal); W20.8XXA Other cause of strike by thrown, projected or falling object, initial encounter; M19.042 Primary osteoarthritis, left hand; M19.041 Primary osteoarthritis, right hand; E78.5 Hyperlipidemia, unspecified; R73.03 Prediabetes; Z87.891 Personal history of nicotine dependence
CPT/HCPCS: 99213; G0463

== ENCOUNTER 2024-02-10 14:16 | Outpatient (CLI) | payer MEDICARE, SELFPAY ==
--- NOTE | ~2024-02-10 | CT_ITS ---
EXAMINATION: CT sinus wo con DATE: 02/10/2024 14:33 INDICATION: Unspecified nonsuppurative otitis media. TECHNIQUE: Computed tomography (CT) of the paranasal sinuses was performed without intravenous contra st. Iterative reconstruction technique was employed. The dose-length product was 281.60 mGy-cm. COMPARISON: Head CT 05/29/2019 FINDINGS: There is extensive mucosal thickening in the frontal sinuses with erosions of the sinus wal ls. There is extensive mucosal thickening in the ethmoid and sphenoid sinuses with thickening and scl erosis of the sinus escobedo. There is extensive mucosal thickening in right maxillary sinus and moderat e mucosal thickening in left maxillary sinus with thickening and sclerosis of the sinus escobedo. The ma xillary sinuses are small. There is leftward deviation of the nasal septum. There are uncinectomies a nd ethmoidectomies. The ostiomeatal units are patent. IMPRESSION: 1. Chronic sinusitis. 2. Leftward deviation of the nasal septum. Reviewed, dictated and finalized at location B.
== END 2024-02-10 14:17 | disposition home or self-care (01) ==
PROVIDERS: PCP Family Medicine; Visit Provider Otolaryngology
DX: H65.90 Unspecified nonsuppurative otitis media, unspecified ear (principal); J32.0 Chronic maxillary sinusitis; J34.2 Deviated nasal septum
CPT/HCPCS: 70486

== ENCOUNTER 2024-05-25 08:02 | Emergency (ER) | payer MEDICARE, SELFPAY ==
--- NOTE | ~2024-05-25 | XR_ITS ---
EXAMINATION: XR chest 2V DATE: 05/25/2024 08:29 INDICATION: Cough and fever. TECHNIQUE: Frontal and lateral views of the chest were obtained. COMPARISON: Chest 2 views 06/16/2023 FINDINGS: There are mild airspace opacities in right middle lobe. No pleural effusion or pneumothorax . The heart size is normal. IMPRESSION: 1. Mild airspace opacities in right middle lobe, consistent with atelectasis versus pneumonia. Reviewed, dictated and finalized at location A. NESS CONTINUITY DIRECTOR IMPRESSION: 1. Mild airspace opacities in right middle lobe, consistent with atelectasis ve rsus pneumonia.
--- NOTE | 2024-05-25 08:06 | ED_ITS ---
HPI - URI/Sore Throat General Chief Complaint: Upper Respiratory Infection Stated Complaint: Upper Respiratory Symptoms Source: patient and RN notes reviewed Mode of arrival: ambulatory Limitations: no limitations History of Present Illness HPI Narrative: Patient is a 73-year-old male who presents to the [facility] with complaints of cough and congestion for the last 3 days. He endorses a frequent productive co ugh with soto sputum. Denies chest pain. Reports intermittent shortness of breath with the cough. States that his was sick with similar symptoms over the past 10 days. He endorses nasal congestion. Denies known fever. Related Data Home Medications ?Medication ?Instructions ?Recorded ?Confirmed ?Last Taken ?Type ferrous sulfate 325 mg (65 mg 325 mg PO BID 12/13/21 03/16/24 Unknown History iron) tablet latanoprost 0.005 % eye drops drp EACH EYE 06/16/23 03/16/24 Unknown History fluticasone propionate 50 1 spray intranasal DAILY 02/02/24 03/16/24 Unknown History mcg/actuation nasal spray,suspension (Flonase Allergy Relief) Allergies Allergy/AdvReac Type Severity Reaction Status Date / Time No Known Allergies Allergy Verified 05/25/24 08:25 Review of Systems Review of Systems: CONSTITUTIONAL: Denies fever, chills, or sweats. EYES: Denies visual changes, redness, or discharge. ENT: Denies otalgia but reports sore throat. Reports congestion. CARDIOVASCULAR: Denies chest pain, palpitations, or edema. RESPIRATORY: Reports cough and dyspnea. GASTROINTESTINAL: Denies abdominal pain, nausea, vomiting, or diarrhea. GENITOURINARY: Denies dysuria or hematuria. SKIN: Denies rash or itching. MUSCULOSKELETAL: Denies back pain, joint pain, or myalgia. NEUROLOGIC: Denies headache, numbness, or weakness. Pertinent positives per HPI. [facility] Past Medical History Medical History Colon polyp Urinary hesitancy Wears glasses Tendinitis of right rotator cuff Rotator cuff disorder Arthritis of finger of both hands Herniated disc Arthritis Renal disease Hemorrhoids Asthma HLD (hyperlipidemia) Sinus problem Prediabetes Surgical History Surgical History H/O hernia repair History of nasal surgery Family History Family History Other Diabetes mellitus Social History Social History Social History: Caffeine-coffee Smoking packs per day: 1 Smoking cigarettes per day: 20.0 Years smoked: 13 Smoking pack-years: 13.00 Smoking status: Former smoker Tobacco type: cigarettes Second hand tobacco smoke exposure: No Smoking end date: 02/11/85 Alcohol intake: never Substance use: never Substance use type: does not use Do You Feel Safe in your Home?: Yes Lack of Transportation: No Lack of Food: Never True Current Housing: I Have Housing Concerned About Future Housing: No Difficulty Paying Gas/Electric Bills: No Difficulty Paying for Meds: No Currently Unemployed: No Education: Associate Degree Difficulty w/ Childcare or Family Care: No Living arrangements: with family Gender identity (if verbalized by the patient): Male Spiritual care concerns: No Comments At the time of my signature, I reviewed and agree with the nursing past medical, surgical, social, and family history. There is no relevant family history pertinent to the patient complaint. Exam Narrative: GENERAL: This is a well-nourished, well-developed patient, in no apparent distress. HEAD: normocephalic, atraumatic. EYES: Sclera clear/white. Vision is grossly intact. EARS: External ears normal. Hearing grossly intact. NOSE: External nose normal with no obvious nasal discharge, nares without redness, no rhinorrhea. THROAT: Mucous membranes moist, posterior pharynx clear. NECK: Neck supple, non-tender without lymphadenopathy, masses or thyromegaly. CARDIOVASCULAR: Regular rate and rhythm without murmurs, gallops, or rubs. RESPIRATORY: Coarse breath sounds bilaterally. GASTROINTESTINAL: Abdomen soft, non-tender, nondistended. Bowel sounds are active. No hepato-splenomegaly, or palpable masses. No guarding. SKIN: warm, intact with no suspicious lesions or rash, good texture and turgor. NEURO: awake, alert, and oriented to person, place and time. There were no obvious focal neurologic abnormalities. Course Course Level of Care: Express Care Visit Vital Signs Vital signs: Vital Signs Temperature 98.1 F 05/25/24 08:15 Pulse Rate 80 05/25/24 08:15 Respiratory Rate 16 05/25/24 08:15 Blood Pressure 110/71 05/25/24 08:15 Pulse Oximetry 98 05/25/24 08:15 Temperature 98.1 F 05/25/24 08:15 Pulse Rate 80 05/25/24 08:15 Respiratory Rate 16 05/25/24 08:15 Blood Pressure 110/71 05/25/24 08:15 Pulse Oximetry 98 05/25/24 08:15 Reviewed MDM - URI/Sore Throat MDM Narrative Medical decision making narrative: Take antibiotic as prescribed. Recommend antihistamine such as Benadryl at night time and Claritin/Zyrtec/Christina during the day. Increase your Vitamin C intake. Cough syrup may cause drowsiness; avoid driving or take it at night time. Use inhaler as needed for cough, wheezing, shortness of breath or chest tightness. Also, recommend symptomatic treatment includes: rest, fluids, increase humidity of the air at home with a humidifier in the bedroom. Recommend Acetaminophen or nonsteroidal anti-inflammatory agents(NSAIDs) as directed in the bottle to reduce fever and/pain/headache. Avoid smoking/second-hand smoke. Limit visits to areas with large crowds. Frequent hand washing or hand volleyball assistant coach is one of the best ways to prevent spread of infection. Differential Diagnosis Differential diagnosis: Likely upper respiratory infection, viral infection, influenza and other ( pneumonia, COVID) Lab Data Attestation: I reviewed the patient's lab results. Labs: Lab Results 05/25/24 Range/Units 08:30 POC Influenza A Ag Negative (Negative) POC Influenza B Ag Negative (Negative) POC SARS CoV-2 Ag Negative (Negative) Imaging Data Attestation: I personally reviewed and interpreted this imaging study as follows: Radiologist's impression: [facility] [id number] [facility] [address] [facility] [place] [address] XRay Report Signed Patient: Minh Major : 1950 MR#: [id number] Age: 73 Acct:[id number] Loc: [facility] ADM Date: 05/25/24Attending Dr: Ordering Physician: Lara Condon APRN Date of Service: 05/25/24 Procedure(s): XR chest 2V Accession Number(s): [id number] cc: Lara Condon APRN; Danie Galaviz MD~ EXAMINATION: XR chest 2V DATE: 05/25/2024 08:29 INDICATION: Cough and fever. TECHNIQUE: Frontal and lateral views of the chest were obtained. COMPARISON: Chest 2 views 06/16/2023 FINDINGS: There are mild airspace opacities in right middle lobe. No pleural effusion or pneumothorax. The heart size is normal. IMPRESSION: 1. Mild airspace opacities in right middle lobe, consistent with atelectasis versus pneumonia. Reviewed, dictated and finalized at location A. SIVE WHEEL MOLDER Please be advised this is a medical document. It is intended for [id number] communication. It is written in medical language and may contain unfamiliar abbreviations or verbiage. Medical documents are intended to carry relevant information, facts as evident, and the clinical opinion of the practitioner at the time of the encounter. This report may have been done utilizing a voice recognition system. Attempts have been made to correct errors. However, there may be uncorrected grammatical, spelling, and recognition errors present. The file time of this note does not necessarily represent the time of service. Dictated By: Giuseppe Maier MD 05/25/24829 Signed By: <Electronically signed by Giuseppe Maier MD in OV> 05/25/24830 Critical Care Time Critical Care Time Critical Care Time: No Discharge Plan Discharge Clinical Impression: Community acquired pneumonia Qualifiers: Laterality: right Lung location: middle lobe of lung Qualified Code(s): J18.9 - Pneumonia, unspecified organism Patient Disposition: Home, Self-Care Condition: Stable Instructions: Antibiotic Form, Community Acquired Pneumonia (ED) Additional Instructions: Take antibiotic as prescribed. Recommend antihistamine such as Benadryl at night time and Claritin/Zyrtec/Christina during the day. Increase your Vitamin C intake. Cough syrup may cause drowsiness; avoid driving or take it at night time. Use inhaler as needed for cough, wheezing, shortness of breath or chest tightness. Also, recommend symptomatic treatment includes: rest, fluids, increase humidity of the air at home with a humidifier in the bedroom. Recommend Acetaminophen or nonsteroidal anti-inflammatory agents(NSAIDs) as directed in the bottle to reduce fever and/pain/headache. Avoid smoking/second-hand smoke. Limit visits to areas with large crowds. Frequent hand washing or hand volleyball assistant coach is one of the best ways to prevent spread of infection. Patient Language: Finnish Prescriptions: New amoxicillin-pot clavulanate 875-125 mg tablet 1 tablet PO Q12H 7 Days Qty: 14 0RF azithromycin 250 mg tablet See Rx Instructions .ROUTE .COMPLEX Qty: 6 0RF Rx Instructions: For 250 mg dose pack: take 500 mg today (day 1), then 250 mg for 4 days (days 2-5) albuterol sulfate [Ventolin HFA] 90 mcg/actuation HFA aerosol inhaler 2 puff inhalation QID PRN (Reason: shortness of breath or wheezing) Qty: 8.5 0RF No Action latanoprost 0.005 % drops EACH EYE fluticasone propionate [Flonase Allergy Relief] 50 mcg/actuation spray,suspension 2 spray intranasal BID Qty: 48 5RF Rx Instructions: administer into each nostril 1 or 2 sprays b.i.d. fluticasone propionate [Flonase Allergy Relief] 50 mcg/actuation spray,suspension 1 spray intranasal DAILY Rx Instructions: administer into each nostril ferrous sulfate 325 mg (65 mg iron) tablet 325 mg PO BID fluticasone furoate-vilanterol [Breo Ellipta] 100-25 mcg/dose blister with device 1 inh INHALATION DAILY Qty: 180 3RF tamsulosin 0.4 mg capsule See Rx Instructions .ROUTE .COMPLEX Qty: 90 1RF Dose Instruction: TAKE 1 CAPSULE BY MOUTH EVERY DAY Rx Instructions: TAKE 1 CAPSULE BY MOUTH EVERY DAY Follow-up/Referrals: Danie Galaviz MD [Primary Care Provider] - Time of Disposition: 08:39
[2024-05-25 08:15] VITALS: BP 110/71; PULSE 80; RESP 16; TEMP 36.7; O2SAT 98
[2024-05-25 08:32] LABS: EDCOVIDSCREEN Negative (Negative); EDINFLUASCREEN Negative (Negative); EDINFLUBSCREEN Negative (Negative)
== END 2024-05-25 08:44 | disposition home or self-care (01) ==
PROVIDERS: Emergency Provider Nurse Practitioner; PCP Family Medicine
DX: J18.9 Pneumonia, unspecified organism (principal); Z20.822 Contact with and (suspected) exposure to COVID-19; E78.5 Hyperlipidemia, unspecified; J45.909 Unspecified asthma, uncomplicated; R73.03 Prediabetes; M19.042 Primary osteoarthritis, left hand; M19.041 Primary osteoarthritis, right hand; Z87.891 Personal history of nicotine dependence
CPT/HCPCS: 71046; 87426; 87804; 99213; G0463

== ENCOUNTER 2024-05-31 08:02 | Emergency (ER) | payer MEDICARE, SELFPAY ==
--- NOTE | 2024-05-31 08:05 | ED.URI ---
HPI - URI/Sore Throat General Chief Complaint: Upper Respiratory Infection Stated Complaint: Upper Respiratory Symptoms Time Seen by Provider: 05/31/24 08:03 Source: patient Mode of arrival: ambulatory Limitations: no limitations History of Present Illness HPI Narrative: Minh is a 73-year-old male patient presenting to the clinic today with complaints of losing his voice x3 days.. He was seen here on May 25 and was diagnosed with right lower lobe pneumonia. He was prescribed azithromycin, Augmentin, and albuterol inhaler at that time. States his breathing is better but has some congestion and losing his voice. Denies any chest pain or shortness of breath. Oxygen saturations 100% on room air. MD elicited complaint: cough and nasal congestion Related Data Home Medications ?Medication ?Instructions ?Recorded ?Confirmed ?Last Taken ?Type ferrous sulfate 325 mg (65 mg 325 mg PO BID 12/13/21 03/16/24 Unknown History iron) tablet latanoprost 0.005 % eye drops drp EACH EYE 06/16/23 03/16/24 Unknown History fluticasone propionate 50 1 spray intranasal DAILY 02/02/24 03/16/24 Unknown History mcg/actuation nasal spray,suspension (Flonase Allergy Relief) Allergies Allergy/AdvReac Type Severity Reaction Status Date / Time No Known Allergies Allergy Verified 05/31/24 08:19 Review of Systems Review of Systems: Pertinent positives per HPI. Patient denies any fever, chills, rash, headache, visual changes, dizziness, sore throat, shortness of breath, chest pain, palpitations, nausea, vomiting, diarrhea, constipation, abdominal pain, or any urinary issues. [facility] Past Medical History Medical History Colon polyp Urinary hesitancy Wears glasses Tendinitis of right rotator cuff Rotator cuff disorder Arthritis of finger of both hands Herniated disc Arthritis Renal disease Hemorrhoids Asthma HLD (hyperlipidemia) Sinus problem Prediabetes Surgical History Surgical History H/O hernia repair History of nasal surgery Family History Family History Other Diabetes mellitus Social History Social History (Reviewed 05/31/24 @ 08:07 by BERNA Pena Social History: Caffeine-coffee Smoking packs per day: 1 Smoking cigarettes per day: 20.0 Years smoked: 13 Smoking pack-years: 13.00 Smoking status: Former smoker Tobacco type: cigarettes Second hand tobacco smoke exposure: No Smoking end date: 02/11/85 Alcohol intake: never Substance use: never Substance use type: does not use Do You Feel Safe in your Home?: Yes Lack of Transportation: No Lack of Food: Never True Current Housing: I Have Housing Concerned About Future Housing: No Difficulty Paying Gas/Electric Bills: No Difficulty Paying for Meds: No Currently Unemployed: No Education: Associate Degree Difficulty w/ Childcare or Family Care: No Living arrangements: with family Gender identity (if verbalized by the patient): Male Spiritual care concerns: No Comments At the time of my signature, I reviewed and agree with the nursing past medical, surgical, social, and family history. There is no relevant family history pertinent to the patient complaint. Exam Narrative: General: Well-developed, well nourished, in no apparent distress Head: Normocephalic, atraumatic Eyes: Pupils equally round and reactive to light bilaterally, EOM intact, sclera and conjunctive clear, no discharge, lids normal Ears: TMs intact and clear, ear canals clear, no drainage, grossly hearing normal. Nose: Nares patent, clear nasal discharge, no inflammation, no sinus tenderness. Mouth: Oropharynx without lesions or masses, good dentition, MMM. Neck: Supple, trachea midline, no enlargement of anterior or posterior cervical nodes, no thyroid masses or goiter palpable. Cardio: Regular rate and rhythm, s1 and s2 normal, no murmur appreciated. Resp: Clear to auscultation bilaterally anteriorly and posteriorly, no rhonchi, rales, wheezing or rubs Course Course Emergency Course: Portions of this record may have been created with voice recognition software. Level of Care: Express Care Visit Vital Signs Vital signs: Vital signs reviewed MDM - URI/Sore Throat MDM Narrative Medical decision making narrative: At the time of visit patient is resting comfortably on the exam table. Patient appears to be nontoxic. Plan: I suspect patient is recovering from right lower lobe pneumonia, laryngitis, and URI. Prescription for prednisone was sent to the pharmacy. Supportive measures were discussed with the patient and they voiced understanding discharge instructions and agrees to treatment plan. Return precautions reviewed Differential Diagnosis Differential diagnosis: Likely upper respiratory infection, otitis media, sinusitis, viral infection, bronchitis, influenza, pharyngitis and other (COVID) Discharge Plan Discharge Clinical Impression: Laryngitis Pneumonia Qualifiers: Pneumonia type: due to unspecified organism Laterality: right Lung location: lower lobe of lung Qualified Code(s): J18.9 - Pneumonia, unspecified organism URI (upper respiratory infection) Qualifiers: URI type: unspecified viral URI Qualified Code(s): J06.9 - Acute upper respiratory infection, unspecified Patient Disposition: Home, Self-Care Condition: Stable Instructions: Antibiotic Form, Upper Respiratory Infection (ED), Pneumonia (ED) Additional Instructions: Take prescription medications only as prescribed-prednisone Finish taking the Augmentin as prescribed Increase fluids and stay well hydrated Tylenol/motrin for pain/fever Flonase and OTC antihistamines as directed Vicks vapor rub to open sinuses Sinus rinses for congestion Cepacol spray, cough drops, throat lozenges, warm tea with honey/lemon, gargle salt water to soothe throat BRAT diet for diarrhea Clear liquids x 24 hours then advance as tolerated for nausea/vomiting Go to the ED if you develop a worsening in your condition- high fever not controlled by Tylenol or Motrin, dehydration, weakness, lethargy, shortness of breath, or chest pain. Follow up with your PCP in 3-5 days if symptoms persist. Patient Language: Spanish Prescriptions: New prednisone 20 mg tablet 40 mg PO DAILY 5 Days Qty: 10 0RF No Action amoxicillin-pot clavulanate 875-125 mg tablet 1 tablet PO Q12H 7 Days Qty: 14 0RF azithromycin 250 mg tablet See Rx Instructions .ROUTE .COMPLEX Qty: 6 0RF Rx Instructions: For 250 mg dose pack: take 500 mg today (day 1), then 250 mg for 4 days (days 2-5) albuterol sulfate [Ventolin HFA] 90 mcg/actuation HFA aerosol inhaler 2 puff inhalation QID PRN (Reason: shortness of breath or wheezing) Qty: 8.5 0RF latanoprost 0.005 % drops EACH EYE fluticasone propionate [Flonase Allergy Relief] 50 mcg/actuation spray,suspension 2 spray intranasal BID Qty: 48 5RF Rx Instructions: administer into each nostril 1 or 2 sprays b.i.d. fluticasone propionate [Flonase Allergy Relief] 50 mcg/actuation spray,suspension 1 spray intranasal DAILY Rx Instructions: administer into each nostril ferrous sulfate 325 mg (65 mg iron) tablet 325 mg PO BID fluticasone furoate-vilanterol [Breo Ellipta] 100-25 mcg/dose blister with device 1 inh INHALATION DAILY Qty: 180 3RF tamsulosin 0.4 mg capsule See Rx Instructions .ROUTE .COMPLEX Qty: 90 1RF Dose Instruction: TAKE 1 CAPSULE BY MOUTH EVERY DAY Rx Instructions: TAKE 1 CAPSULE BY MOUTH EVERY DAY Follow-up/Referrals: Danie Galaviz MD [Primary Care Provider] - Time of Disposition: 08:18 Quality NIHSS Nursing Documentation ED NIHSS nursing documentation: reviewed/agree
[2024-05-31 08:10] VITALS: BP 111/72; PULSE 77; RESP 18; TEMP 36.6; O2SAT 100
== END 2024-05-31 08:21 | disposition home or self-care (01) ==
PROVIDERS: Emergency Provider Nurse Practitioner Family; PCP Family Medicine
DX: J04.0 Acute laryngitis (principal); J18.9 Pneumonia, unspecified organism; J06.9 Acute upper respiratory infection, unspecified; Z87.891 Personal history of nicotine dependence; M19.90 Unspecified osteoarthritis, unspecified site; E78.5 Hyperlipidemia, unspecified; R73.03 Prediabetes
CPT/HCPCS: 99213; G0463

== ENCOUNTER 2025-01-20 10:52 | Emergency (ER) | payer MEDICARE, SELFPAY ==
[2025-01-20 11:09] VITALS: BP 109/76; PULSE 137; RESP 16; TEMP 36.8; O2SAT 98
--- NOTE | 2025-01-20 11:45 | ED.WOUNDLAC ---
HPI - Wound/Laceration General Chief Complaint: Wound/Laceration Stated Complaint: Laceration to back of head Time Seen by Provider: 01/20/25 11:33 Source: patient and RN notes reviewed Mode of arrival: ambulatory Limitations: no limitations History of Present Illness HPI narrative: 74-year-old male patient presents today complete small laceration to the right posterior scalp. Approximately 1 hour prior to exam patient accidentally struck his head on a backhoe at home. Denies loss of consciousness. Reports minimal pain. He is up-to-date on his tetanus vaccine. Patient takes no anticoagulants or Plavix Related Data Home Medications ?Medication ?Instructions ?Recorded ?Confirmed ?Last Taken ?Type ferrous sulfate 325 mg (65 mg 325 mg PO BID 12/13/21 01/20/25 Unknown History iron) tablet latanoprost 0.005 % eye drops drp EACH EYE 06/16/23 01/19/25 Unknown History ascorbate calcium (vitamin C) 500 500 mg PO BID 01/12/25 01/20/25 Unknown History mg tablet clotrimazole 1 % topical solution 1 applic topical BID 01/12/25 01/19/25 Unknown History fluticasone furoate 100 1 inh inhalation DAILY 01/12/25 01/20/25 Unknown History mcg-vilanterol 25 mcg/dose inhalation powder (Breo Ellipta) ibuprofen 200 mg tablet (Advil) 200 mg PO Q6H PRN 01/12/25 01/19/25 Unknown History buyxjpsr-tl-xznuy 300 mcg-K 60 1 tablet PO DAILY 01/12/25 01/20/25 Unknown History mcg-lycop 600 mcg-lutein 300 mcg tablet (Centrum Silver Men) pseudoephedrine HCl 30 mg tablet 30 mg PO Q4-6H PRN 01/12/25 01/19/25 Unknown History (Sudafed) timolol maleate 0.5 % eye drops drp EACH EYE 01/12/25 01/19/25 Unknown History Allergies Allergy/AdvReac Type Severity Reaction Status Date / Time No Known Allergies Allergy Verified 01/20/25 11:09 [facility] Past Medical History Medical History Colon polyp Urinary hesitancy Wears glasses Tendinitis of right rotator cuff Rotator cuff disorder Arthritis of finger of both hands Herniated disc Arthritis Renal disease Hemorrhoids Asthma HLD (hyperlipidemia) Sinus problem Prediabetes Surgical History Surgical History H/O hernia repair History of nasal surgery Family History Family History Other Diabetes mellitus Social History Social History Social History: Caffeine-coffee Smoking packs per day: 1 Smoking cigarettes per day: 20.0 Years smoked: 13 Smoking pack-years: 13.00 Smoking status: Former smoker Tobacco type: cigarettes Second hand tobacco smoke exposure: No Smoking end date: 02/11/85 Alcohol intake: never Substance use: never Substance use type: does not use Do You Feel Safe in your Home?: Yes Lack of Transportation: No Lack of Food: Never True Current Housing: I Have Housing Concerned About Future Housing: No Difficulty Paying Gas/Electric Bills: No Difficulty Paying for Meds: No Currently Unemployed: No Education: Associate Degree Difficulty w/ Childcare or Family Care: No Living arrangements: with family Gender identity (if verbalized by the patient): Male Spiritual care concerns: No Comments At time of signature, I have reviewed and agree with nursing past medical, surgical, social and family history unless otherwise noted. Please see nursing chart for further information. There is no relevant family history pertinent to the presenting complaint Exam Narrative: GENERAL: Well-appearing, well-nourished, and in no acute distress. HEAD: Normocephalic, atraumatic. EYES: EOMI. No redness or drainage. Conjunctivae normal. ENT: Mucous membranes pink and moist. NECK: Normal AROM. CHEST: No respiratory distress. EXTREMITIES: Normal range of motion. No edema. SKIN: Warm, dry, no rash. Capillary refill normal. Normal skin turgor. 1 cm partial-thickness linear laceration to the right posterior scalp without active bleeding. No surrounding edema, ecchymosis, or crepitus. NEURO: No focal deficits. Alert and oriented x3. Gait steady. PSYCH: Normal affect. No signs of depression or anxiety. Course Course Level of Care: [facility] Care Visit Vital Signs Vital signs: Vital Signs Temperature 98.2 F 01/20/25 11:09 Pulse Rate 137 H 01/20/25 11:09 Respiratory Rate 16 01/20/25 11:09 Blood Pressure 109/76 01/20/25 11:09 Pulse Oximetry 98 01/20/25 11:09 Temperature 98.2 F 01/20/25 11:09 Pulse Rate 137 H 01/20/25 11:09 Respiratory Rate 16 01/20/25 11:09 Blood Pressure 109/76 01/20/25 11:09 Pulse Oximetry 98 01/20/25 11:09 Reviewed. Recheck pulse 84 prior to discharge. MDM - Wound/Laceration MDM Narrative Medical decision making narrative: 74-year-old male patient presents today complete small laceration to the right posterior scalp. Approximately 1 hour prior to exam patient accidentally struck his head on a backhoe at home. Denies loss of consciousness. Reports minimal pain. He is up-to-date on his tetanus vaccine. Patient takes no anticoagulants or Plavix. Upon exam, patient has a 1 cm partial-thickness linear laceration to the right posterior scalp without any active bleeding. Repaired with 1 staple. Care instructions given. Anticipatory guidance given. Differential Diagnosis Differential diagnosis: Likely laceration, abrasion and avulsion of skin Critical Care Time Critical Care Time Critical Care Time: No Discharge Plan Discharge Clinical Impression: Laceration of scalp Qualifiers: Encounter type: initial encounter Qualified Code(s): S01.01XA - Laceration without foreign body of scalp, initial encounter Patient Disposition: Home Condition: Stable Instructions: Staple Care (ED) Additional Instructions: Your stable needs to be removed in 5-7 days. Wash daily with soap and water or in the shower. Do not scrub or use alcohol or peroxide. Monitor for any signs of infection such as redness, swelling, increased pain, or drainage, and see your doctor if you note any. Take Tylenol for discomfort if needed. Patient Language: Japanese Prescriptions: No Action latanoprost 0.005 % drops EACH EYE fluticasone propionate [Flonase Allergy Relief] 50 mcg/actuation spray,suspension 2 spray intranasal BID Qty: 48 5RF Rx Instructions: administer into each nostril 1 or 2 sprays b.i.d. ascorbate calcium (vitamin C) 500 mg tablet 500 mg PO BID clotrimazole 1 % solution 1 applic topical BID Rx Instructions: 2 drops in each ear daily ibuprofen [Advil] 200 mg tablet 200 mg PO Q6H PRN pseudoephedrine HCl [Sudafed] 30 mg tablet 30 mg PO Q4-6H PRN Rx Instructions: DNExceed 4 doses/24h timolol maleate 0.5 % drops EACH EYE Centrum Silver Men [id number] mcg tablet 1 tablet PO DAILY fluticasone furoate-vilanterol [Breo Ellipta] 100-25 mcg/dose blister with device 1 inh inhalation DAILY prednisone 10 mg tablet See Rx Instructions PO DAILY Qty: 42 0RF Rx Instructions: 6 po qdayx 2 days, 5 x 2days,4 x 2 d,3 x 2d,2 x 2d, 1 x 2 days PO daily; ferrous sulfate 325 mg (65 mg iron) tablet 325 mg PO BID acyclovir 800 mg tablet 800 mg PO QID Qty: 20 2RF tamsulosin 0.4 mg capsule See Rx Instructions .ROUTE .COMPLEX Qty: 90 1RF Dose Instruction: TAKE 1 CAPSULE BY MOUTH EVERY DAY Rx Instructions: TAKE 1 CAPSULE BY MOUTH EVERY DAY Follow-up/Referrals: Danie Galaviz MD [Primary Care Provider, Family Practice] Time of Disposition: 11:49
== END 2025-01-20 12:10 | disposition home or self-care (01) ==
PROVIDERS: Emergency Provider Nurse Practitioner; PCP Family Medicine
DX: S01.01XA Laceration without foreign body of scalp, initial encounter (principal); W22.8XXA Striking against or struck by other objects, initial encounter; Z87.891 Personal history of nicotine dependence; E78.5 Hyperlipidemia, unspecified; J45.909 Unspecified asthma, uncomplicated; R73.03 Prediabetes; M19.042 Primary osteoarthritis, left hand; M19.041 Primary osteoarthritis, right hand
CPT/HCPCS: 12001; 99213; G0463